=== PATIENT | female | born 1945 | race Two or more races ===

== ENCOUNTER 2020-11-25 13:06 | Inpatient (IN) | payer OTHER ==
[~2020-11-25] VITALS: Ht 162.6 cm; Wt 67.0 kg
[2020-11-25 15:06] LABS: Eosinophils # (auto) 0.1 10 ^3/uL (0-0.8); Hemoglobin 14.2 g/dL (12.2-16.2); Lymphocytes # (auto) 1.6 10 ^3/uL (0.4-5.4); Lymphocytes % (auto) 15.5 % (10.0-50.0); Neutrophils # (auto) 8.1 10 ^3/uL (1.6-8.6)
[2020-11-25 15:09] LABS: Basophils # (auto) 0 10 ^3/uL (0-0.2); Basophils % (auto) 0.4 % (0.0-2.0); Eosinophils % (auto) 0.8 % (0.0-7.0); Hematocrit 39.5 % (36.0-46.0); Mean Corpuscular Hemoglobin 34.4 pg (28.0-32.0); Mean Corpuscular Hgb Conc. 35.8 g/dL (32.0-36.0); Mean Corpuscular Volume 96.2 fL (80.0-100.0); Monocytes # (auto) 0.5 10 ^3/uL (0-1.3); Monocytes % (auto) 4.6 % (0.0-12.0); Neutrophils % (auto) 78.7 % (37.0-80.0); Platelet Count (auto) 157 10^3/uL (140-450); Red Blood Cells 4.11 10^6/uL (4.0-5.20); Red Cell Distribution Width 13.4 % (11.8-14.3); White Blood Cell 10.3 10^3/uL (4.4-10.8)
[2020-11-25 15:12] LABS: Albumin 4.2 g/dL (3.4-5.0); Anion Gap 6 (5-15); Blood Urea Nitrogen 12 mg/dL (7-18); Calcium 9.5 mg/dL (8.5-10.1); Carbon Dioxide 29 mmol/L (21-32); Chloride 102 mmol/L (98-107); Glucose 116 mg/dL (74-106); Magnesium 2.2 mg/dL (1.6-2.6); Potassium 3.9 mmol/L (3.5-5.1); Sodium 137 mmol/L (136-145)
[2020-11-25 15:18] LABS: Alanine Aminotransferase 23 U/L (13-56); Alkaline Phosphatase 71 U/L (45-117); Aspartate Aminotransferase 21 U/L (15-37); BUN/Creatinine Ratio 15.8; GFR African American 95 mL/min; GFR Non-African American 79 mL/min; Total Protein 7.7 g/dL (6.4-8.2)
[2020-11-25] MEDS ORDERED: levoFLOXacin 500MG 100 ML IV ONE (23:15)
[2020-11-25] MEDS ORDERED: metroNIDAZOLE 500MG/100ML 100 ML IV ONE (23:15)
[2020-11-25] MEDS ORDERED: ONDANSETRON HCL 4 MG/2 ML VIAL IV ONE (23:15)
[2020-11-25] MEDS ORDERED: fentaNYL CITRATE 100 MCG/2 ML VL IV ONE (23:15)
[2020-11-26 01:47] LABS: Urine Bacteria NONE SEEN /hpf (None Seen); Urine Blood 2+ /uL (Negative); Urine Specific Gravity 1.009 (1.001-1.035); Urine WBC 2 /hpf (0 - 5)
[2020-11-26] MEDS ORDERED: MORPHINE SULF INJ 2 MG/ML SYRINGE 1ML IV PRN (02:45)
[2020-11-26] MEDS ORDERED: hydrALAZINE HCL 20 MG/ML VL IV PRN (02:45)
[2020-11-26] MEDS ORDERED: NITROGLYCERIN 0.4 MG SL TAB SL PRN (02:45)
[2020-11-26] MEDS ORDERED: MORPHINE SULFATE 4 MG/ML SYR/VIAL IV PRN (02:45)
[2020-11-26] MEDS ORDERED: ONDANSETRON HCL 4 MG/2 ML VIAL IV PRN (02:45)
[2020-11-26] MEDS: SODIUM CHLORIDE 0.9% 1,000 ML IV SCH ×2 (03:26→19:25)
[2020-11-26] MEDS ORDERED: CARV3.1240 PO (04:28)
[2020-11-26] MEDS: metroNIDAZOLE 500MG/100ML 100 ML IV SCH ×3 (05:41→21:02)
[2020-11-26] MEDS ORDERED: LISI-716 PO (05:46)
[2020-11-26] MEDS ORDERED: CAR3125T PO (05:46)
[2020-11-26] MEDS ORDERED: HYDR-4798 PO (05:46)
[2020-11-26 05:53] VITALS: BP 136/82
[2020-11-26 08:41] LABS: Basophils # (auto) 0 10 ^3/uL (0-0.2); Eosinophils # (auto) 0.1 10 ^3/uL (0-0.8); Mean Corpuscular Hgb Conc. 35.5 g/dL (32.0-36.0); Monocytes # (auto) 0.5 10 ^3/uL (0-1.3); Monocytes % (auto) 5.8 % (0.0-12.0); White Blood Cell 9.4 10^3/uL (4.4-10.8)
[2020-11-26 08:43] LABS: Basophils % (auto) 0.2 % (0.0-2.0); Eosinophils % (auto) 1.3 % (0.0-7.0); Hemoglobin 12.8 g/dL (12.2-16.2); Lymphocytes # (auto) 1.2 10 ^3/uL (0.4-5.4); Lymphocytes % (auto) 12.8 % (10.0-50.0); Mean Corpuscular Hemoglobin 33.9 pg (28.0-32.0); Mean Corpuscular Volume 95.6 fL (80.0-100.0); Neutrophils # (auto) 7.5 10 ^3/uL (1.6-8.6); Neutrophils % (auto) 79.9 % (37.0-80.0); Platelet Count (auto) 135 10^3/uL (140-450); Red Blood Cells 3.76 10^6/uL (4.0-5.20); Red Cell Distribution Width 13.6 % (11.8-14.3)
[2020-11-26 09:00] VITALS: BP 97/56
[2020-11-26 09:00] LABS: Albumin 3.4 g/dL (3.4-5.0); Calcium 9.1 mg/dL (8.5-10.1); Potassium 3.7 mmol/L (3.5-5.1)
[2020-11-26 09:03] LABS: BUN/Creatinine Ratio 13.9; Bilirubin, Total 1.2 mg/dL (0.2-1.0); Total Protein 6.7 g/dL (6.4-8.2)
[2020-11-26] MEDS: LISINOPRIL 10 MG TAB PO SCH (09:39)
[2020-11-26] MEDS ORDERED: FAMOTIDINE (10MG/ML) 2ML VL IV SCH (10:00)
[2020-11-26] MEDS: HYDROcodone-ACET 5/325MG TAB PO PRN ×2 (12:14→20:05)
[2020-11-26] MEDS: ENOXAPARIN SOD 40 MG/0.4 ML SYRINGE SC SCH (12:15)
[2020-11-26 13:00] VITALS: BP 120/56
[2020-11-26] MEDS ORDERED: GOLYTELY 4L KIT PO ONE (13:30)
[2020-11-26] MEDS: SUCRALFATE 1 GM/10 ML ORAL SUSP PO SCH ×3 (13:54→21:02)
[2020-11-26] MEDS: PANTOPRAZOLE 40 MG TAB PO SCH ×2 (13:55→21:02)
[2020-11-26 14:27] LABS: INR 1.08 (0.9-1.15)
[2020-11-26 17:00] VITALS: BP 132/72
[2020-11-26 22:00] VITALS: BP 146/81
[2020-11-27] MEDS: SODIUM CHLORIDE 0.9% 1,000 ML IV SCH ×2 (03:23→22:27)
[2020-11-27] MEDS: ACETAMINOPHEN 325 MG TAB PO PRN ×2 (03:31→09:42)
[2020-11-27 05:00] VITALS: BP 135/65
[2020-11-27] MEDS: levoFLOXacin 500MG 100 ML IV SCH (05:13)
[2020-11-27 05:35] LABS: Basophils # (auto) 0 10 ^3/uL (0-0.2); Basophils % (auto) 0.5 % (0.0-2.0); Eosinophils # (auto) 0.1 10 ^3/uL (0-0.8); Hematocrit 34.7 % (36.0-46.0); Hemoglobin 12.2 g/dL (12.2-16.2); Lymphocytes # (auto) 1.2 10 ^3/uL (0.4-5.4); Lymphocytes % (auto) 17.1 % (10.0-50.0); Mean Corpuscular Hemoglobin 33.8 pg (28.0-32.0); Mean Corpuscular Volume 96.4 fL (80.0-100.0); Monocytes # (auto) 0.5 10 ^3/uL (0-1.3); Monocytes % (auto) 6.5 % (0.0-12.0); Neutrophils # (auto) 5.3 10 ^3/uL (1.6-8.6); Neutrophils % (auto) 73.9 % (37.0-80.0); Platelet Count (auto) 127 10^3/uL (140-450); Red Blood Cells 3.61 10^6/uL (4.0-5.20); Red Cell Distribution Width 13.3 % (11.8-14.3); White Blood Cell 7.2 10^3/uL (4.4-10.8)
[2020-11-27 05:49] LABS: Potassium 3.3 mmol/L (3.5-5.1)
[2020-11-27 05:51] LABS: INR 1.05 (0.9-1.15); Partial Thromboplastin Time 27.5 sec (23.0-31.2)
[2020-11-27 05:59] LABS: Albumin 3.2 g/dL (3.4-5.0); BUN/Creatinine Ratio 8.3; Bilirubin, Total 1.2 mg/dL (0.2-1.0); Calcium 8.5 mg/dL (8.5-10.1); Magnesium 1.9 mg/dL (1.6-2.6); Total Protein 6.3 g/dL (6.4-8.2)
[2020-11-27] MEDS: SUCRALFATE 1 GM/10 ML ORAL SUSP PO SCH ×4 (06:20→21:29)
[2020-11-27] MEDS: metroNIDAZOLE 500MG/100ML 100 ML IV SCH ×3 (06:20→21:29)
[2020-11-27 08:00] VITALS: BP 131/62
[2020-11-27 09:00] VITALS: BP 131/68
[2020-11-27] MEDS: PANTOPRAZOLE 40 MG TAB PO SCH ×2 (09:41→21:29)
[2020-11-27] MEDS: LISINOPRIL 10 MG TAB PO SCH (09:41)
[2020-11-27] MEDS ORDERED: TRAZ-184 PO (09:45)
[2020-11-27] MEDS: ENOXAPARIN SOD 40 MG/0.4 ML SYRINGE SC SCH (10:00)
[2020-11-27 13:00] VITALS: BP 151/73
[2020-11-27] MEDS ORDERED: MAGNESIUM SULFATE 1GM/100ML 100 ML IV ONE (13:00)
[2020-11-27] MEDS: HYDROcodone-ACET 5/325MG TAB PO PRN ×2 (13:14→21:30)
[2020-11-27 17:00] VITALS: BP 130/78
[2020-11-27 22:00] VITALS: BP 150/77
[2020-11-28] MEDS: levoFLOXacin 500MG 100 ML IV SCH (05:13)
[2020-11-28 05:27] VITALS: BP 133/75
[2020-11-28] MEDS: metroNIDAZOLE 500MG/100ML 100 ML IV SCH ×3 (06:12→21:04)
[2020-11-28] MEDS: SUCRALFATE 1 GM/10 ML ORAL SUSP PO SCH (06:19)
[2020-11-28] MEDS ORDERED: LIDOCAINE VISCOUS 2% 15ML UD ONE (08:58)
[2020-11-28] MEDS ORDERED: SODIUM CHLORIDE LOCK 10 ML ONE (08:58)
[2020-11-28] MEDS ORDERED: diphenhdrAMINE HCL 50 MG/1 ML VL ONE (08:59)
[2020-11-28 09:02] VITALS: BP 153/69
[2020-11-28] MEDS ORDERED: EPINEPHrine HCL 1 MG/10 ML SYRG ONE (09:05)
[2020-11-28] MEDS: ENOXAPARIN SOD 40 MG/0.4 ML SYRINGE SC SCH (09:23)
[2020-11-28] MEDS: LISINOPRIL 10 MG TAB PO SCH (09:23)
[2020-11-28] MEDS: PANTOPRAZOLE 40 MG TAB PO SCH ×2 (09:24→21:04)
[2020-11-28] MEDS: MIDAZOLAM HCL 5 MG/ML-1ML VIAL ONE ×3 (11:46→12:00)
[2020-11-28] MEDS: fentaNYL CITRATE 100 MCG/2 ML VL ONE ×3 (11:46→12:00)
[2020-11-28 12:28] VITALS: BP 137/79
[2020-11-28] MEDS: HYDROcodone-ACET 5/325MG TAB PO PRN ×2 (16:11→21:04)
[2020-11-28] MEDS: SODIUM CHLORIDE 0.9% 1,000 ML IV SCH (16:11)
[2020-11-28 16:33] VITALS: BP 128/79
[2020-11-28 22:00] VITALS: BP 134/69
[2020-11-29] MEDS: levoFLOXacin 500MG 100 ML IV SCH (04:42)
[2020-11-29 05:00] VITALS: BP 134/69
[2020-11-29 06:35] LABS: Basophils # (auto) 0.1 10 ^3/uL (0-0.2); Basophils % (auto) 1.2 % (0.0-2.0); Eosinophils # (auto) 0.1 10 ^3/uL (0-0.8); Eosinophils % (auto) 2.8 % (0.0-7.0); Hematocrit 33.7 % (36.0-46.0); Lymphocytes # (auto) 1.2 10 ^3/uL (0.4-5.4); Lymphocytes % (auto) 25.6 % (10.0-50.0); Mean Corpuscular Hemoglobin 34.2 pg (28.0-32.0); Mean Corpuscular Hgb Conc. 35.6 g/dL (32.0-36.0); Monocytes # (auto) 0.4 10 ^3/uL (0-1.3); Monocytes % (auto) 8.4 % (0.0-12.0); Neutrophils # (auto) 2.9 10 ^3/uL (1.6-8.6); Platelet Count (auto) 133 10^3/uL (140-450); Red Blood Cells 3.51 10^6/uL (4.0-5.20); Red Cell Distribution Width 13.2 % (11.8-14.3); White Blood Cell 4.6 10^3/uL (4.4-10.8)
[2020-11-29 06:53] LABS: BUN/Creatinine Ratio 13.1; Calcium 8.4 mg/dL (8.5-10.1); Potassium 3.1 mmol/L (3.5-5.1)
[2020-11-29] MEDS: metroNIDAZOLE 500MG/100ML 100 ML IV SCH ×2 (08:02→16:00)
[2020-11-29] MEDS: HYDROcodone-ACET 5/325MG TAB PO PRN ×2 (08:05→13:37)
[2020-11-29 09:00] VITALS: BP 150/78
[2020-11-29] MEDS: PANTOPRAZOLE 40 MG TAB PO SCH (09:46)
[2020-11-29] MEDS: ENOXAPARIN SOD 40 MG/0.4 ML SYRINGE SC SCH (09:47)
[2020-11-29] MEDS: LISINOPRIL 10 MG TAB PO SCH (09:47)
[2020-11-29] MEDS ORDERED: POTASSIUM CHL 20 Meq TABLET PO ONE (10:00)
[2020-11-29] MEDS ORDERED: LEVO500T31 PO (11:29)
[2020-11-29] MEDS ORDERED: METR500T PO (11:29)
[2020-11-29] MEDS ORDERED: PANT40TA2 PO (11:29)
[2020-11-29] MEDS: SODIUM CHLORIDE 0.9% 1,000 ML IV SCH (11:45)
[2020-11-29 17:06] VITALS: BP 143/82
[2020-11-29 17:22] VITALS: BP 136/72
== END 2020-11-29 18:24 | disposition home health service (06) | DRG 392 ==
LOC: ER 13:06 → OVERFLOW 11-26 02:44 → WEST WING 11-26 05:05
PROVIDERS: ADMIT Nurse Practitioner Family; ATTEND Internal Medicine
PROC: 0DBF8ZX Excision of Right Large Intestine, Via Natural or Artificial Opening Endoscopic, Diagnostic (ICD-10-PCS; 2020-11-28)
PROC: 0DB68ZX Excision of Stomach, Via Natural or Artificial Opening Endoscopic, Diagnostic (ICD-10-PCS; principal; 2020-11-28 11:40)
PROC: 0DBL8ZZ Excision of Transverse Colon, Via Natural or Artificial Opening Endoscopic (ICD-10-PCS; 2020-11-28 11:40)
DX: K29.70 Gastritis, unspecified, without bleeding (principal); K55.9 Vascular disorder of intestine, unspecified; K59.00 Constipation, unspecified; I10 Essential (primary) hypertension; M16.0 Bilateral primary osteoarthritis of hip; R73.03 Prediabetes; E87.6 Hypokalemia; K63.5 Polyp of colon; Z03.89 Encounter for observation for other suspected diseases and conditions ruled out; Z87.19 Personal history of other diseases of the digestive system; Z90.710 Acquired absence of both cervix and uterus; M54.30 Sciatica, unspecified side; Z88.0 Allergy status to penicillin; Z20.822 Contact with and (suspected) exposure to COVID-19
CPT/HCPCS: 36415; 71045; 74176; 80048; 80053; 81001; 82247; 83036; 83735; 84484; 85025; 85049; 85610; 85730; 86850; 86900; 86901; 87045; 87426; 87427; 87493; 96365; 96367; 96375; 97163; G0378; J1956; J2250; J2405; J3490